=== PATIENT | male | born 1985 | race Caucasian/White ===

== ENCOUNTER → 2016-08-16 | Outpatient (CLI) | payer OTHER ==
[~2016-08-16] MED LIST: AMOXICILLIN500 MG PO; FIORICET 325 MG1 TAB PO; HYDROCODONE BIT1 T11 PO; MOTRIN800 MG PO; PEN-VEE K250 MG/5 M PO; ULTRAM50 MG PO; ZOFRAN ODT4 MG SL
== END | disposition home or self-care (01) ==
LOC: ORTHO 04:05
DX: M25.572 Pain in left ankle and joints of left foot (principal)

== ENCOUNTER 2016-11-20 14:11 | Emergency (ER) | payer OTHER ==
[~2016-11-20] VITALS: Ht 187.9 cm; Wt 95.3 kg
[2016-11-20] MEDS ORDERED: AMOXICILLIN500 M2 PO (14:23)
[2016-11-20] MEDS ORDERED: Motrin,Rufen800 MG PO (14:23)
== END 2016-11-20 17:11 | disposition home or self-care (01) ==
LOC: ED 14:11
DX: K08.89 Other specified disorders of teeth and supporting structures (principal); Z88.6 Allergy status to analgesic agent

== ENCOUNTER 2017-01-20 08:49 | Emergency (ER) | payer OTHER ==
[~2017-01-20] VITALS: Wt 90.7 kg
[~2017-01-20 08:49] MED LIST changes: +AMOXICILLIN500 M2 PO; +Motrin,Rufen800 MG PO
[2017-01-20] MEDS ORDERED: NAPROSYN500 MG PO (09:02)
[2017-01-20] MEDS ORDERED: AMOXICILLIN500 M2 PO (09:02)
== END 2017-01-20 09:49 | disposition home or self-care (01) ==
LOC: ED 08:49
DX: K08.89 Other specified disorders of teeth and supporting structures (principal); Z88.6 Allergy status to analgesic agent; F17.200 Nicotine dependence, unspecified, uncomplicated

== ENCOUNTER 2017-09-01 10:19 | Emergency (ER) | payer OTHER ==
[~2017-09-01] VITALS: Wt 90.7 kg
[~2017-09-01 10:19] MED LIST changes: +NAPROSYN500 MG PO
== END 2017-09-01 11:26 | disposition home or self-care (01) ==
LOC: ED
DX: S93.402A Sprain of unspecified ligament of left ankle, initial encounter (principal); Z88.6 Allergy status to analgesic agent; X50.1XXA Overexertion from prolonged static or awkward postures, initial encounter; Y93.89 Activity, other specified; Y92.89 Other specified places as the place of occurrence of the external cause; Y99.9 Unspecified external cause status

== ENCOUNTER 2019-06-28 10:13 | Emergency (ER) | payer OTHER ==
[~2019-06-28] VITALS: Ht 182.8 cm; Wt 88.5 kg
[~2019-06-28 10:13] MED LIST changes: +IBUPROFEN600 MG PO
[2019-06-28] MEDS ORDERED: IBUPROFEN600 MG PO (10:38)
[2019-06-28] MEDS ORDERED: AMOXICILLIN500 M2 PO (10:38)
== END 2019-06-28 10:52 | disposition home or self-care (01) ==
LOC: ED 10:13
DX: K02.9 Dental caries, unspecified (principal); Z88.6 Allergy status to analgesic agent

== ENCOUNTER 2019-07-03 09:39 | Emergency (ER) | payer OTHER ==
[~2019-07-03] VITALS: Ht 182.8 cm; Wt 88.5 kg
[2019-07-03] MEDS ORDERED: ROBAXIN-750750 MG PO (11:52)
[2019-07-03] MEDS ORDERED: PREDNISONE20 M1 PO (11:52)
== END 2019-07-03 12:20 | disposition home or self-care (01) ==
LOC: ED 09:39
DX: S33.5XXA Sprain of ligaments of lumbar spine, initial encounter (principal); M54.41 Lumbago with sciatica, right side; F17.200 Nicotine dependence, unspecified, uncomplicated; Z88.6 Allergy status to analgesic agent; Z88.8 Allergy status to other drugs, medicaments and biological substances; X50.1XXA Overexertion from prolonged static or awkward postures, initial encounter; Y93.89 Activity, other specified; Y92.89 Other specified places as the place of occurrence of the external cause; Y99.8 Other external cause status

== ENCOUNTER 2019-09-13 22:37 | Emergency (ER) | payer OTHER ==
[~2019-09-13] VITALS: Ht 182.8 cm; Wt 93.0 kg
[~2019-09-13 22:37] MED LIST changes: +PREDNISONE20 M1 PO; +ROBAXIN-750750 MG PO
[2019-09-13] MEDS ORDERED: FLONASE ALLERG9.9 ML NAS (23:03)
[2019-09-13] MEDS ORDERED: AMOXICILLIN500 M2 PO (23:03)
== END 2019-09-13 23:41 | disposition home or self-care (01) ==
LOC: ED 22:37
DX: J32.9 Chronic sinusitis, unspecified (principal); Z88.8 Allergy status to other drugs, medicaments and biological substances; Z79.899 Other long term (current) drug therapy

== ENCOUNTER 2019-12-27 17:18 | Emergency (ER) | payer OTHER ==
[~2019-12-27] VITALS: Ht 182.8 cm; Wt 90.7 kg
[~2019-12-27 17:18] MED LIST changes: +FLONASE ALLERG9.9 ML NAS
[2019-12-27] MEDS ORDERED: IBU800 MG PO (17:42)
[2019-12-27] MEDS ORDERED: CLEOCIN HCL150 MG PO (17:42)
== END 2019-12-27 17:45 | disposition home or self-care (01) ==
LOC: ED 17:18
DX: K04.7 Periapical abscess without sinus (principal); F17.200 Nicotine dependence, unspecified, uncomplicated; Z88.8 Allergy status to other drugs, medicaments and biological substances; Z79.899 Other long term (current) drug therapy

== ENCOUNTER 2020-01-03 11:38 | Emergency (ER) | payer OTHER ==
[~2020-01-03] VITALS: Ht 182.8 cm; Wt 90.7 kg
[~2020-01-03 11:38] MED LIST changes: +CLEOCIN HCL150 MG PO; +IBU800 MG PO
== END 2020-01-03 12:47 | disposition left against medical advice (07) ==
LOC: ED 11:38
DX: K08.89 Other specified disorders of teeth and supporting structures (principal); Z88.6 Allergy status to analgesic agent

== ENCOUNTER 2020-04-30 20:42 | Emergency (ER) | payer OTHER ==
[~2020-04-30] VITALS: Ht 182.8 cm; Wt 93.0 kg
[2020-04-30] MEDS ORDERED: AUGMENTIN 875875 MG PO (21:13)
[2020-04-30] MEDS ORDERED: FLONASE ALLERG9.9 ML NAS (21:13)
== END 2020-04-30 22:00 | disposition home or self-care (01) ==
LOC: ED 20:42
DX: J32.0 Chronic maxillary sinusitis (principal); Z88.6 Allergy status to analgesic agent; Z88.8 Allergy status to other drugs, medicaments and biological substances

== ENCOUNTER 2021-05-26 18:11 | Emergency (ER) | payer OTHER ==
[~2021-05-26] VITALS: Wt 93.0 kg
[~2021-05-26 18:11] MED LIST changes: +AUGMENTIN 875875 MG PO
[2021-05-26] MEDS ORDERED: AUGMENTIN 875875 MG PO (20:40)
== END 2021-05-26 21:01 | disposition home or self-care (01) ==
LOC: ED 18:11
DX: S61.451A Open bite of right hand, initial encounter (principal); Z88.6 Allergy status to analgesic agent; W54.0XXA Bitten by dog, initial encounter; Y93.89 Activity, other specified; Y92.89 Other specified places as the place of occurrence of the external cause; Y99.8 Other external cause status

== ENCOUNTER 2024-05-23 03:17 | Emergency (ER) | payer SELFPAY ==
[~2024-05-23] VITALS: Ht 182.8 cm; Wt 90.7 kg
[2024-05-23 03:31] LABS: BASO % 0.1 % (0.0-1.0); EOS % 0.3 % (1.0-4.0); HEMATOCRIT 40.9 % (42.0-52.0); MEAN CELL VOLUME 85.4 fl (80.0-94.0); MEAN CORPUSCULAR HGB 30.3 pg (27.0-31.0); MEAN CORPUSCULAR HGB CONC 35.5 g/dl (33.0-37.0); MEAN PLATELET VOLUME 9.5 fl (9.6-12.3); MONO # 0.7 10*3/uL (0.1-1.0); MONO % 10.3 % (3.0-9.0); NEUT # 3.9 10*3/uL (2.3-7.9); NEUT % 56.2 % (47.0-73.0); PLATELET COUNT AUTOMATED 197 10*3/uL (130-400); RED BLOOD COUNT 4.79 10*6/uL (4.50-5.90); RED CELL DISTRI WIDTH 12.3 % (0-14.5); WHITE BLOOD COUNT 6.9 10*3/uL (4.8-10.8)
[2024-05-23 03:51] LABS: BUN 12 mg/dl (9-23); CHLORIDE 103 mmol/L (98-107); POTASSIUM 3.7 mmol/L (3.4-5.1)
[2024-05-23 03:52] LABS: ETHYL ALCOHOL < 3.0 mg/dl (<3)
== END 2024-05-23 04:30 | disposition left against medical advice (07) ==
LOC: ED 03:17
PROVIDERS: Internal Medicine
DX: R45.1 Restlessness and agitation (principal); F14.10 Cocaine abuse, uncomplicated; Z53.29 Procedure and treatment not carried out because of patient's decision for other reasons; Z88.5 Allergy status to narcotic agent; Z88.8 Allergy status to other drugs, medicaments and biological substances; Z79.899 Other long term (current) drug therapy

== ENCOUNTER 2025-04-18 13:04 | Emergency (ER) | payer OTHER ==
[~2025-04-18] VITALS: Ht 182.8 cm; Wt 93.0 kg
[2025-04-18] MEDS ORDERED: AMOX-CLAV 875-1 EACH PO (13:41)
== END 2025-04-18 14:10 | disposition home or self-care (01) ==
LOC: ED 13:04
DX: S01.03XA Puncture wound without foreign body of scalp, initial encounter (principal); Z88.1 Allergy status to other antibiotic agents; Z88.5 Allergy status to narcotic agent; W54.0XXA Bitten by dog, initial encounter; Y93.89 Activity, other specified; Y92.89 Other specified places as the place of occurrence of the external cause; Y99.8 Other external cause status